=== PATIENT | male | born 1970 | race Caucasian/White ===

== ENCOUNTER 2021-01-09 09:08 | Outpatient (CLI) | payer MEDICARE, OTHER | END 2021-01-09 09:09 | disposition home or self-care (01) | LOC: CSHWCC 09:08 | PROVIDERS: ATTEND Nurse Practitioner Family | DX: T81.89XD Other complications of procedures, not elsewhere classified, subsequent encounter (principal); S82.202D Unspecified fracture of shaft of left tibia, subsequent encounter for closed fracture with routine healing; F32.9 Major depressive disorder, single episode, unspecified; G89.21 Chronic pain due to trauma; J44.9 Chronic obstructive pulmonary disease, unspecified; L08.9 Local infection of the skin and subcutaneous tissue, unspecified; B96.89 Other specified bacterial agents as the cause of diseases classified elsewhere; R60.0 Localized edema; Y92.410 Unspecified street and highway as the place of occurrence of the external cause | CPT/HCPCS: 99213; G0463 ==

== ENCOUNTER 2021-01-23 09:52 | Outpatient (CLI) | payer MEDICARE, OTHER | END 2021-01-23 09:53 | disposition home or self-care (01) | LOC: CSHWCC 09:52 | PROVIDERS: ATTEND Nurse Practitioner Family | DX: T81.89XD Other complications of procedures, not elsewhere classified, subsequent encounter (principal); S82.202S Unspecified fracture of shaft of left tibia, sequela; R60.0 Localized edema; F32.9 Major depressive disorder, single episode, unspecified; G89.21 Chronic pain due to trauma; J44.9 Chronic obstructive pulmonary disease, unspecified; L08.9 Local infection of the skin and subcutaneous tissue, unspecified; B96.89 Other specified bacterial agents as the cause of diseases classified elsewhere; Y92.410 Unspecified street and highway as the place of occurrence of the external cause | CPT/HCPCS: 99213; G0463 ==